=== PATIENT | female | born 1925 | race Caucasian/White ===

== ENCOUNTER 2016-07-23 15:23 | Emergency (ER) | payer OTHER ==
[2016-07-23] MEDS ORDERED: XYLOCAINE 1%/EPI 1:100,000 INJ ONE (15:41)
--- NOTE | 2016-07-23 16:01 | PROVIDER DOCUMENTATION ---
HPI-Head Injury - General Source: patient, family - History of Present Illness-Head Injury Head Injury Location: reports: frontal Other injuries associated with incident:: reports: head, LUE Quality of Pain: reports: aching Severity: reports: mild Onset/Duration: reports: just prior to arrival Timing: reports: still present Method of Injury: reports: fell Any recent trauma/injury?: reports: minor Loss of Consciousness: no loss of consciousness Locality of Occurance: Home Similar Symptoms Previously?: No Recently seen or treated by another doctor?: No <Emy Freeman - Last Filed: 07/23/16 17:14> <Marcelo Burnette - Last Filed: 07/23/16 17:20> - General Chief Complaint: Head Injury Stated Complaint: HEAD INJURY Time Seen by Provider: 07/23/16 15:45 Allergies/Adverse Reactions: Patient Allergies Allergy/AdvReac Type Severity Reaction Status Date / Time No Known Allergies Allergy Verified 09/27/15 13:25 Home Medications: Home Medication List Medication Instructions Recorded Confirmed Last Taken Type Metformin [Glucophage] 500 mg PO WBREAKFAST #30 tablet 08/27/14 09/27/15 Rx Acetaminophen [Tylenol] 325 mg PO DAILY 09/27/15 09/27/15 09/27/15 History Aspirin EC 81 mg PO DAILY 09/27/15 09/27/15 09/26/15 History Calcium Carbonate/Vitamin D3 1 each PO DAILY 09/27/15 09/27/15 09/27/15 History [Calcium 600+D Softgel] Esomeprazole [Nexium] 40 mg PO DAILY 09/27/15 09/27/15 09/27/15 History LISINOpril [Prinivil] 2.5 mg PO DAILY 09/27/15 09/27/15 09/27/15 History Metoprolol Succinate [Toprol Xl] 25 mg PO DAILY 09/27/15 09/27/15 09/27/15 History Multivitamin [Multivitamins] 1 each PO DAILY 09/27/15 09/27/15 09/27/15 History Nitroglycerin Sl [Nitroglycerin] 0.4 tab SL PRN PRN 09/27/15 09/27/15 Unknown History Potassium Gluconate 2 meq PO DAILY 09/27/15 09/27/15 09/27/15 History SIMVAstatin [Zocor] 40 mg PO QHS 09/27/15 09/27/15 09/26/15 History Sennosides/Docusate Sodium [Senna 1 tab DAILY 09/27/15 09/27/15 09/26/15 History Laxative Tablet] Hydrocodone/APAP 5 mg/325 mg 1 each PO Q4H PRN PRN #15 tablet 10/01/15 Unknown Rx [[place]-5] - History of Present Illness-Head Injury Nature of Presenting Problem: PT IS A 89 YOF THAT IS NOT ONLY ANY BLOOD THINNERS EXCEPT FOR A DAILY BABY ASPIRIN THAT PRESENTS TO ER WITH CC OF FRONTAL SCALP HEAD INJURY SECONDARY TO A SLIP AND FALL AT HOME. PT DENIES LOC. PT HAS LARGE SCALP LAC MIDLINE OF HEAD. PT ALSO HAS LARGE HEMATOMA TO LEFT HAND. PT REPORTS LEFT SHOULDER PAIN. (Emy Freeman) Review of Systems - Adult - REVIEW OF SYSTEMS - ADULT Constitutional: denies: chills, fever, fatique Eyes: reports: no symptoms reported Ears, Nose, Mouth & Throat: denies: ear pain, sinus problem, throat pain Cardiovascular: reports: no symptoms reported Respiratory: denies: cough, shortness of breath, wheezing Gastrointestinal: reports: no symptoms reported Genitourinary: reports: no symptoms reported Musculoskeletal: reports: see HPI. denies: bone pain, back pain, joint pain, joint swelling, muscle aches Integumentary: reports: see HPI. denies: hives, hair loss, mole changes, nail changes Neurological: denies: dizziness/vertigo, loss of balance, numbness, paresthesia Psychiatric: reports: no symptoms reported Endocrine: reports: no symptoms reported Hematologic/Lymphatic: reports: no symptoms reported Allergic/Immunologic: reports: no symptoms reported All Other Systems: Reviewed and Negative <Emy Freeman - Last Filed: 07/23/16 17:14> Past History - Adult - PAST MEDICAL HISTORY-ADULT Review of Records: reports: Nursing Assessment Review Major Childhood Illnesses: reports: denies history Cardiovascular: reports: HTN Endocrine/Immune: reports: Diabetes - PRIOR SURGERIES/PROCEDURES Surgical/Procedure History: reports: hysterectomy, other (hemmorhoidectomy) - PRIOR HOSPITALIZATIONS Prior Hospitalizations: reports: for other non-related - IMMUNIZATION STATUS Childhood Immunizations: See Nurse Assessment Flu Vaccine: See Nurse Assessment - SOCIAL HISTORY Smoking: denies Substance Use: none/never <FreemanEmy - Last Filed: 07/23/16 17:14> Physical Exam- Neurological - Physical Exam-Neuro Initial Vital Signs Reviewed: Yes General Appearance: appears well, alert, no apparent distress Eye Exam: bilateral eye: normal inspection, PERRL, EOMI HENMT: moist mucous membranes, normal ENT inspection, TMs normal, pharynx normal Head Injury: active bleeding (FRONTAL SCALP), lacerations (10 CM TO FRONTAL SCALP CURVED SHAPE; 3CM LEFT POSTERIOR HAND LAC), other (HEMATOMA RIGHT SCALP) Neck: non-tender, full range of motion, supple, normal inspection Respiratory: chest non-tender, lungs clear, normal breath sounds, no pleuratic chest pain, no respiratory distress, no accessory muscle use Cardiovascular: normal peripheral pulses, regular rate, rhythm, no edema, no gallop, no JVD, no murmur Abdominal Exam: normal bowel sounds, non tender, soft, no organomegaly, no pulsatile mass Peripheral Pulses: dorsalis-pedis (R): 2+, dorsalis-pedis (L): 2+ Extremity: normal range of motion, non-tender, 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 hearing, normal speech, PERRL Coordination/Gait: normal finger to nose, normal gait Motor/Sensory: no motor deficit, no sensory deficit, no pronator drift Neurologic: laborer airport maintenance II-XII nml as tested, grossly normal, no motor/sensory deficits Integumentary: normal color, normal turgor, warm/dry Psych/Mental Status: normal mood/affect, normal thought content, normal thought process, oriented x 3 - Glascow Coma Scale Best Eye Response: (4) open spontaneously Best Verbal Response: (5) oriented Best Motor Response: (6) obeys commands Total Glascow Score: 15 <Emy Freeman - Last Filed: 07/23/16 17:14> Progress - XRAY 1 XRAY: Right XRAY Study: Shoulder Impression: Normal XRAY Interpretation: NO FX - CT/MRI 1 CT Study: Head Impression: Abnormal (scalp hematoma but no intracranial injury), See EMR Report <Emy Freeman - Last Filed: 07/23/16 17:14> - REASSESSMENT Reassessment #1 Time Reassessed: 17:20 Status: improving (with the simona, sutures and dermabond there was some bleeding from the staple sites still, so a pressure bandaged was applied to remain in place about 24-36 hours) <Marcelo Burnette - Last Filed: 07/23/16 17:20> - PLAN OF CARE/RESULTS Progress/Plan/Lab Results: Orders Category Date Time Status Mis. NRSG Communication Order DIRECTED Care 07/23/16 15:42 Active Lidocaine 1%/Epi 1:100,000 [Xylocaine 1%/Epi 1:100,000] Med 07/23/16 15:41 Discontinued 10 ml INJ NOW ONE Vital Signs - 24 hr 07/23/16 15:30 Temperature 98 F Pulse Rate 79 Respiratory 18 Rate Blood Pressure 168/99 O2 Sat by Pulse 95 Oximetry Orders Category Date Time Status Mis. NRSG Communication Order DIRECTED Care 07/23/16 15:42 Active HEAD W/O CONTRAST [CT] Stat Exams 07/23/16 16:23 Taken SHOULDER-LEFT [RAD] Stat Exams 07/23/16 16:22 Taken Cyanoacrylate Tissue Adhesive [Dermabond] Med 07/23/16 16:58 Discontinued 1 each .ROUTE .STK-MED ONE Lidocaine 1%/Epi 1:100,000 [Xylocaine 1%/Epi 1:100,000] Med 07/23/16 15:41 Discontinued 10 ml INJ NOW ONE Pt began to bleed again after her head CT MD will use dermabond on top of sutures and simona to help with closure. Orders Category Date Time Status Mis. NRSG Communication Order DIRECTED Care 07/23/16 15:42 Active HEAD W/O CONTRAST [CT] Stat Exams 07/23/16 16:23 Taken SHOULDER-LEFT [RAD] Stat Exams 07/23/16 16:22 Taken Cyanoacrylate Tissue Adhesive [Dermabond] Med 07/23/16 16:58 Discontinued 1 each .ROUTE .STK-MED ONE Cyanoacrylate Tissue Adhesive [Dermabond] Med 07/23/16 17:04 Once 1 each TOP NOW ONE Lidocaine 1%/Epi 1:100,000 [Xylocaine 1%/Epi 1:100,000] Med 07/23/16 15:41 Discontinued 10 ml INJ NOW ONE (Emy Freeman) Procedures - LACERATION/WOUND REPAIR/FB Anterior Head Wound Location: Other: FRONTAL/SCALP Wound Length: 10CM Wound's Depth, Shape: irregular Wound Explored/Foreign Body: clean Irrigated with Saline?: Yes Prepped with: Kit Utilized Anesthetic: 1%, Lidocaine w/ Epinephrine Volume of Anesthetic (ml's): 8 Wound Repaired with: [place]-Small (17 SIMONA USED) Suture Size/Type: 4.0, Non-Absorbable, Nylon Number of Sutures: 3 Layer Closure?: No Sterile Dressing Applied?: Yes Splint Applied?: No Sling Applied?: No Procedure Comment: USED 4.O NYLON ALSO TO CLOSE LACERATION USING FIGURE 8 STYLE (3SUTURES) Left Posterior Hand Wound Location: Other: LEFT POSTERIOR HAND Wound Length: 3CM Wound's Depth, Shape: superficial Wound Explored/Foreign Body: clean Irrigated with Saline?: Yes Prepped with: Kit Utilized Wound Repaired with: Steri-strips Sterile Dressing Applied?: Yes Splint Applied?: No Sling Applied?: No Post Procedure Neurovascular Exam: Intact <Emy Freeman - Last Filed: 07/23/16 17:14> Departure - Departure Time of Disposition Order: 16:04 Certified Medical Emergency: Emergent <Emy Freeman - Last Filed: 07/23/16 17:14> <Marcelo Burnette - Last Filed: 07/23/16 17:20> - Departure DIAGNOSIS: Head injury Qualifiers: Encounter type: initial encounter Qualified Code(s): S09.90XA - Unspecified injury of head, initial encounter Laceration of head Qualifiers: Encounter type: initial encounter Location of open wound of head: unspecified part of head Foreign body presence: without foreign body Qualified Code(s): S01.91XA - Laceration without foreign body of unspecified part of head, initial encounter Shoulder pain Qualifiers: Laterality: left Chronicity: acute Qualified Code(s): M25.512 - Pain in left shoulder Disposition: HOME 01 Condition: Stable Additional Instructions: FOLLOW UP WITH PCP OR RETURN TO ER IN 10-14 DAYS FOR SUTURE/STAPLE REMOVAL. ED Follow Up Instructions: You have been treated by a care provider in the Emergency Department. These instructions are being provided to you so you can have an understanding of how to care for yourself upon discharge. Upon discharge from the Emergency Department, you are responsible for making arrangements for follow-up care by a physician of your choice. Take all prescribed medications as directed. Return to the Emergency Department immediately for any new or worsening symptoms. You may call the Physician Referral phone number at [phone] to obtain a list of Physicians who are taking new patients. Referrals: Foster Saleem MD [Primary Care Provider] - Attestation - Scribe Verification/Attestation Scribe:: Emy Freeman Acting as Scribe for:: Marcelo Burnette Scribe documention review:: This chart was documented by a scribe and accurately reflects the service the provider performed and the decisions made by the provider. <Emy Freeman - Last Filed: 07/23/16 17:14> Physician Attestation
[2016-07-23] MEDS ORDERED: DERMABOND ONE (16:58)
[2016-07-23] MEDS ORDERED: DERMABOND TOP ONE (17:04)
--- NOTE | 2016-07-23 17:31 | Diag Imaging Result Document ---
PROCEDURE NAME: HEAD W/O CONTRAST - 07/23/2016 CT BRAIN WITHOUT CONTRAST. DOSE REDUCTION PROTOCOL. COMPARISON: 01/05/2013. FINDINGS: There is a prominent frontal scalp hematoma. Skin simona are present. No skull fracture. No parenchymal hemorrhage. No epidural or subdural hematoma. No subarachnoid hemorrhage. No mass identified on this noncontrasted exam. No hydrocephalus. Mild microvascular ischemic changes. IMPRESSION: Scalp hematoma but no intracranial injury. A preliminary report was given at 4:51 p.m..
[2016-07-23 17:39] VITALS: BP 176/79
--- NOTE | 2016-07-23 18:16 | Diag Imaging Result Document ---
PROCEDURE NAME: SHOULDER-LEFT - 07/23/2016 LEFT SHOULDER, 3 VIEWS, INCLUDING AN AXILLARY Y VIEW: There are arthritic changes at the acromioclavicular joint. No separation. No fracture. No dislocation. IMPRESSION: No acute bony injury.
== END 2016-07-23 17:40 | disposition home or self-care (01) ==
LOC: P.ED 15:23
DX: S01.01XA Laceration without foreign body of scalp, initial encounter (principal); S61.412A Laceration without foreign body of left hand, initial encounter; M25.512 Pain in left shoulder; S60.222A Contusion of left hand, initial encounter; S00.03XA Contusion of scalp, initial encounter; I10 Essential (primary) hypertension; E11.9 Type 2 diabetes mellitus without complications; Z79.82 Long term (current) use of aspirin; Z79.899 Other long term (current) drug therapy; W01.0XXA Fall on same level from slipping, tripping and stumbling without subsequent striking against object, initial encounter
CPT/HCPCS: 70450

== ENCOUNTER 2016-08-21 13:45 | Inpatient (IN) ==
[2016-08-21 14:09] LABS: MANUAL DIFF NEEDED? NO
[2016-08-21 14:10] LABS: BASO% 0.2 % (0.0-0.8); EOS# 0.13 X1000 (0.0-0.7); EOS% 1.3 % (0.0-10.0); HEMOGLOBIN 11.8 g/dL (12.0-16.0); IMM GRAN# 0.01 X1000 (0.0-0.04); IMM GRAN% 0.1 % (0.0-0.5); LYMPH# 1.63 X1000 (1.2-3.4); LYMPH% 16.3 % (20.5-51.1); MCH 28.6 PG (27-31); MCHC 31.9 g/dL (33-37); MCV 89.8 FL (81-99); MONO# 0.97 X1000 (0.11-0.59); MONO% 9.7 % (1.7-9.3); NEUT% 72.4 % (42.2-75.2); PLT 267 X1000 (130-400); RBC 4.12 XMIL (4.2-5.4)
[2016-08-21 14:30] LABS: ALBUMIN 3.6 g/dL (3.5-5.0); CALCIUM 8.7 mg/dL (8.8-10.2); TOTAL BILIRUBIN 0.3 mg/dL (0.20-1.00); TOTAL PROTEIN 6.6 g/dL (6.3-8.3)
[2016-08-21] MEDS ORDERED: ROCEPHIN 1 GM/NS 1 GM/50 ML IVPB IV ONE (15:24)
[2016-08-21] MEDS ORDERED: NS 500 ML IV ONE (15:25)
--- NOTE | 2016-08-21 15:25 | Diag Imaging Result Document ---
PROCEDURE NAME: CHEST-2 VIEWS - 08/21/2016 CHEST, 2 VIEWS: INDICATION: Cough. COMPARISON: 09/27/2015. FINDINGS: There is stable cardiomegaly and evidence of previous granulomatous infection. There is a mild new right perihilar infiltrate consistent with atelectasis or pneumonia. Followup is recommended to document complete clearing. There is a stable moderate hiatal hernia. Stable basilar fibrosis. There is linear subsegmental atelectasis, left mid lung zone. There is a kyphosis. No definite effusions. IMPRESSION: New right perihilar infiltrate suspicious for pneumonia. Recommend followup to document complete clearing.
[2016-08-21 15:28] LABS: BILIRUBIN URINE NEGATIVE (NEGATIVE); BLOOD URINE 1+ (NEGATIVE); CLARITY CLEAR (CLEAR); COLOR YELLOW; GLUCOSE URINE NEGATIVE (NEGATIVE); LEUKOCYTES URINE 1+ (NEGATIVE); NITRITE URINE NEGATIVE (NEGATIVE); PROTEIN URINE TRACE mg/dL (NEGATIVE); URINE SOURCE CATH; UROBILINOGEN URINE NORMAL
[2016-08-21] MEDS ORDERED: ZOFRAN IV PRN (15:28)
[2016-08-21 15:30] LABS: URINE CAST GRANULAR PRESENT /LPF; URINE CULTURE PL NEEDED? YES; URINE EPITHELIAL CELLS <10 /HPF (<10); URINE RBC <10 /HPF (<10); URINE SMALL ROUND CELLS RENAL PRESENT; URINE WBC <10 /HPF (<10)
--- NOTE | 2016-08-21 15:33 | PROVIDER DOCUMENTATION ---
This chart was entered by Yesi Ray Scribe, acting as scribe for Mykel Chappell Jr, MD. HPI-General Adult - General Chief Complaint: Fever Stated Complaint: CHEST PAIN Time Seen by Provider: 08/21/16 13:58 Source: patient Allergies/Adverse Reactions: Patient Allergies Allergy/AdvReac Type Severity Reaction Status Date / Time No Known Allergies Allergy Verified 09/27/15 13:25 Home Medications: Home Medication List Medication Instructions Recorded Confirmed Last Taken Type Metformin [Glucophage] 500 mg PO WBREAKFAST #30 tablet 08/27/14 09/27/15 Rx Acetaminophen [Tylenol] 325 mg PO DAILY 09/27/15 09/27/15 09/27/15 History Aspirin EC 81 mg PO DAILY 09/27/15 09/27/15 09/26/15 History Calcium Carbonate/Vitamin D3 1 each PO DAILY 09/27/15 09/27/15 09/27/15 History [Calcium 600+D Softgel] Esomeprazole [Nexium] 40 mg PO DAILY 09/27/15 09/27/15 09/27/15 History LISINOpril [Prinivil] 2.5 mg PO DAILY 09/27/15 09/27/15 09/27/15 History Metoprolol Succinate [Toprol Xl] 25 mg PO DAILY 09/27/15 09/27/15 09/27/15 History Multivitamin [Multivitamins] 1 each PO DAILY 09/27/15 09/27/15 09/27/15 History Nitroglycerin Sl [Nitroglycerin] 0.4 tab SL PRN PRN 09/27/15 09/27/15 Unknown History Potassium Gluconate 2 meq PO DAILY 09/27/15 09/27/15 09/27/15 History SIMVAstatin [Zocor] 40 mg PO QHS 09/27/15 09/27/15 09/26/15 History Sennosides/Docusate Sodium [Senna 1 tab DAILY 09/27/15 09/27/15 09/26/15 History Laxative Tablet] Hydrocodone/APAP 5 mg/325 mg 1 each PO Q4H PRN PRN #15 tablet 10/01/15 Unknown Rx [[place]-5] - History of Present Illness -Gen Adult Nature of Presenting Problems: Pt is 89 y/o F presents to the ED with F and cough. Pt states F started yesterday. Pt states the F was 102 and she took some meds and the F came down. Pt states the F came back today. Pt states saw FURNACE SETTER at PCP's office. Location of Pain/Injury: reports: none Pain Radiation: reports: no radiation Quality of Pain: reports: none Onset/Duration: reports: 24 hours ago Timing: reports: still present Context/Activities at Onset: reports: light activity Modifying Factors: improves with: nothing Associated Symptoms: reports: cough, fever/chills (F) Similar Symptoms Previously?: Yes Recently seen or treated by another doctor?: Yes Review of Systems - Adult - REVIEW OF SYSTEMS - ADULT Constitutional: reports: fever. denies: chills Eyes: reports: no symptoms reported Ears, Nose, Mouth & Throat: reports: no symptoms reported Cardiovascular: reports: irregular heart rate (tachy). denies: chest pain, heart murmur Respiratory: reports: cough. denies: shortness of breath, wheezing Gastrointestinal: reports: no symptoms reported Genitourinary: reports: no symptoms reported Musculoskeletal: reports: no symptoms reported Integumentary: reports: no symptoms reported Neurological: reports: no symptoms reported Psychiatric: reports: no symptoms reported Endocrine: reports: no symptoms reported Hematologic/Lymphatic: reports: no symptoms reported Allergic/Immunologic: reports: no symptoms reported All Other Systems: Reviewed and Negative Past History - Adult - PAST MEDICAL HISTORY-ADULT Review of Records: reports: Nursing Assessment Review, Medications Reviewed, Social history reviewed & non-contributory. Major Childhood Illnesses: reports: denies history Cardiovascular: reports: HTN, hyperlipidemia Respiratory: reports: denies history Gastrointestinal: reports: denies history Obstetrical/Gynecological: reports: denies history Genitourinary: reports: denies history Musculoskeletal: reports: denies history Neurological: reports: denies history Endocrine/Immune: reports: Diabetes Other Conditions: reports: denies history - PRIOR SURGERIES/PROCEDURES Surgical/Procedure History: reports: hysterectomy, other (hemmorhoidectomy) - PRIOR HOSPITALIZATIONS Prior Hospitalizations: reports: for other non-related - IMMUNIZATION STATUS Childhood Immunizations: See Nurse Assessment Flu Vaccine: See Nurse Assessment - FAMILY HISTORY Family History: reviewed, not pertinent - SOCIAL HISTORY Smoking: denies Substance Use: denies Living Situation: family Physical Exam-General - PHYSICAL EXAM-ADULT Initial Vital Signs Reviewed: Yes - CONSTITUTIONAL General Appearance: appears well, alert, no apparent distress - EYES Eyes: PERRL/EOMI, pink conjunctivae - HEAD, EARS, NOSE, MOUTH & THROAT HENMT: normocephalic/atraumatic, moist mucous membranes, normal ENT inspection, TMs normal, pharynx normal, other (upper and lower dentures present) - NECK Neck: non-tender, full range of motion, supple, normal inspection - RESPIRATORY Respiratory: chest non-tender, lungs clear, normal breath sounds, no pleuratic chest pain, no respiratory distress, no accessory muscle use - CARDIOVASCULAR Cardiovascular: normal peripheral pulses, no edema, no gallop, no JVD, no murmur , tachycardia - GASTROINTESTINAL (ABDOMEN) Abdominal Exam: normal bowel sounds, non tender, soft, no organomegaly, no pulsatile mass - LYMPHATIC Lymphatic: no adenopathy - MUSCULOSKELETAL Back Exam: normal inspection, no CVA tenderness, no vertebral tenderness Extremity: normal range of motion, non-tender, normal gait, normal inspection, no pedal edema, no calf tenderness, normal capillary refill, pelvis stable - SKIN Integumentary: normal color, normal turgor, warm/dry - NEUROLOGIC Neurologic: grossly normal - PSYCHIATRIC Psych/Mental Status: normal mood/affect, oriented x 3 Progress - PLAN OF CARE/RESULTS Progress/Plan/Lab Results: Vital Signs - 8 hr 08/21/16 13:48 08/21/16 14:05 Temperature 101.4 F H Pulse Rate 128 H 107 H Respiratory Rate 20 16 Blood Pressure 104/61 101/68 O2 Sat by Pulse Oximetry 96 95 Laboratory Results - last 24 hr 08/21/16 13:55 WBC 10.01 RBC 4.12 L Hgb 11.8 L Hct 37.0 MCV 89.8 MCH 28.6 MCHC 31.9 L RDW Std Deviation 14.2 Plt Count 267 MPV 10.0 Immature Gran % (Auto) 0.1 Neut % (Auto) 72.4 Lymph % (Auto) 16.3 L [place] % (Auto) 9.7 H Eos % (Auto) 1.3 Baso % (Auto) 0.2 Immature Gran # (Auto) 0.01 Neut # (Auto) 7.25 H Lymph # (Auto) 1.63 [place] # (Auto) 0.97 H Eos # (Auto) 0.13 Baso # (Auto) 0.02 Orders Category Date Time Status Li Cath Insertion ORDERED Care 08/21/16 14:07 Active Saline Loc NOW Care 08/21/16 13:47 Active CHEST-2 VIEWS [RAD] Stat Exams 08/21/16 13:47 Ordered BLOOD CULTURE [BLDCUL] Stat Lab 08/21/16 13:47 Ordered CBC WITH DIFF [HEME] Stat Lab 08/21/16 13:55 Completed COMPREHENSIVE METABOLIC PANEL [CHEM] Stat Lab 08/21/16 13:55 Received LACTATE, PLASMA [CHEM] Stat Lab 08/21/16 13:50 Ordered URINALYSIS [URINALYSIS] Stat Lab 08/21/16 13:58 Uncollected Pulse Oximetry Stat Oth 08/21/16 13:47 Active Result Diagrams: 08/21/16 13:55 08/21/16 13:55 - XRAY 1 XRAY: Bilateral XRAY Study: Chest Impression: Abnormal (prior granulomatous dz) XRAY Interpretation: small new R perihilar infiltrate no change cm, HH, pulm fibrosis, - CONSULTS/PCP/HOSPITALIST Notification #1 *Consult/PCP/Hospitalist*: Dr. Saleem Time Discussed: 15:19 (Dr. Saleem accepted admit ) Reason/Comments: Dr. Chappell consulted with Dr. Saleem about admit of PT Consult Disposition: Admit Departure - Departure Time of Disposition Decision: 15:28 DIAGNOSIS: Pneumonia Qualifiers: Pneumonia type: due to unspecified organism Laterality: right Lung location: middle lobe of lung Qualified Code(s): J18.1 - Lobar pneumonia, unspecified organism Disposition: ADMITTED INPATIENT 09 Certified Medical Emergency: Emergent Condition: Good Referrals and Follow-Ups: Foster Saleem MD [Primary Care Provider] - This chart was documented by the indicated scribe, (Yesi Ray Scribe) and accurately reflects the services I performed and decisions made by me, Mykel Chappell Jr, MD, as attested by the provider's signature.
[2016-08-21] MEDS: PERICOLACE PO SCH (20:30)
[2016-08-21] MEDS: ZOCOR PO SCH (20:30)
[2016-08-21] MEDS: TYLENOL PO PRN (22:21)
[2016-08-22] MEDS: NEXIUM PO SCH (06:08)
[2016-08-22 07:12] LABS: HEMATOCRIT 34.8 % (37.0-47.0); HEMOGLOBIN 11.3 g/dL (12.0-16.0); MCH 29.2 PG (27-31); MCHC 32.5 g/dL (33-37); MCV 89.9 FL (81-99); MPV 10.3 FL (7.4-10.4); RBC 3.87 XMIL (4.2-5.4)
[2016-08-22 07:33] LABS: AGAP 10; ALBUMIN 3.4 g/dL (3.5-5.0); ALKALINE PHOSPHATASE 83 U/L (32-104); BUN 12 mg/dL (8-22); CALCIUM 8.7 mg/dL (8.8-10.2); CHLORIDE 100 mmol/L (98-107); COSMO 274; GOT 21 U/L (10-30); GPT 13 U/L (10-36); SODIUM 137 mmol/L (136-145); TCO2 28 mmol/L (25-35); TOTAL PROTEIN 6.3 g/dL (6.3-8.3)
[2016-08-22] MEDS: THERA M PLUS PO SCH (08:32)
[2016-08-22] MEDS: PRINIVIL PO SCH (08:32)
[2016-08-22] MEDS: GLUCOPHAGE PO SCH (08:32)
[2016-08-22] MEDS: ASPIRIN EC PO SCH (08:33)
[2016-08-22] MEDS: CALTRATE 600 + D PO SCH (08:33)
[2016-08-22] MEDS: PATIENT'S OWN MED PO SCH (08:34)
[2016-08-22] MEDS: TYLENOL PO PRN ×2 (11:07→23:32)
--- NOTE | 2016-08-22 13:27 | Diag Imaging Result Document ---
PROCEDURE NAME: TRAUMA SHOULDER LEFT - 08/22/2016 RIGHT SHOULDER, 3 VIEWS: COMPARISON: 07/23/2016. FINDINGS: Stable degeneration at the acromioclavicular joint. The glenohumeral joint is superiorly subluxed with the humeral head contacting the undersurface of the acromion. This is consistent with chronic rupture of the supraspinatus tendon. IMPRESSION: See findings.
[2016-08-22] MEDS: OMNICEF PO SCH (20:38)
[2016-08-22] MEDS: PERICOLACE PO SCH (20:38)
[2016-08-22] MEDS: ZOCOR PO SCH (20:38)
[2016-08-22] MEDS ORDERED: ZANAFLEX PO PRN (20:51)
[2016-08-23] MEDS: NEXIUM PO SCH (06:11)
[2016-08-23] MEDS: THERA M PLUS PO SCH (08:27)
[2016-08-23] MEDS: OMNICEF PO SCH (08:27)
[2016-08-23] MEDS: PRINIVIL PO SCH (08:27)
[2016-08-23] MEDS: CALTRATE 600 + D PO SCH (08:27)
[2016-08-23] MEDS: GLUCOPHAGE PO SCH (08:27)
[2016-08-23] MEDS: ASPIRIN EC PO SCH (08:27)
[2016-08-23] MEDS: PATIENT'S OWN MED PO SCH (08:29)
[2016-08-23 16:21] VITALS: BP 150/66
--- NOTE | 2016-08-23 17:48 | DISCHARGE SUMMARY ---
ADMISSION DATE: 08/21/2016 DISCHARGE DATE: 08/23/2016 DISCHARGE DIAGNOSES: 1. Pneumonia improving. 2. Chest pain resolved. 3. Left shoulder pain from chronic injury with acute pain from her recent fall. 4. Recent fall with contusion of her scalp, frontal lobe which is improving. 5. Abnormal blood culture with gram-positive cocci which has grown a contaminant with Staphylococcus epidermidis. CONSULTATIONS: None. PROCEDURES: None. HOSPITAL COURSE: The patient is an 89-year-old female who has as noted on the HPI. Treated in the usual fashion. She was placed on antibiotics which she tolerated very well. She continued to improve. Her antibiotic was changed to Omnicef p.o. On discharge, she is awake, alert. She is in no distress. She is feeling better. She is ambulating in the doty without any difficulty. She is still having left shoulder pain but it is to be expected given her chronic shoulder injury. DISPOSITION: The patient will be discharged home on Omnicef. Thirty-five minutes was spent in discharge planning and instructions. Patient currently is awake alert. She is in no distress. She is eating and drinking back to her usual. Therefore she will be discharged home. Her chest pain has resolved. TIME SPENT: Thirty-five minutes was spent in discharge planning and instructions. cc: Foster Saleem MD
--- NOTE | 2016-08-25 11:32 | HISTORY AND PHYSICAL ---
CHIEF COMPLAINT: Fever and chest pain. HISTORY OF PRESENT ILLNESS: This patient is an 89-year-old female who presented to [facility] noting that she was having some chest pain. This seems to be more chest wall pain that hurts worse with movement in her left chest and left shoulder. She notes that she recently fell and she has a well healing laceration to her scalp. She notes since then her chest began hurting. She also notes that yesterday she had a fever and that is the reason she came to the emergency department as the fever continued today. ALLERGIES: No known drug allergies. MEDICATIONS: Glucophage 500 daily, Tylenol, aspirin, Nexium, Prinivil 2.5, Toprol 25, multivitamin, nitroglycerin. Zocor 40, [place] 5 p.r.n. due to her recent fall. REVIEW OF SYSTEMS: Patient notes that she started having fever yesterday. It came back today and therefore she came to the emergency department. Positive chest pain. Hurts with deep inspiration over the past 24-48 hours. Positive cough but nonproductive. Denies any current chills, denies nausea or vomiting, dysuria, frequency or urgency, denies hesitancy. Denies polyuria, polydipsia. Denies skin rashes, weight loss, or weight gain. PAST MEDICAL HISTORY: Diabetes, hypertension and hyperlipidemia. PAST SURGICAL HISTORY: Hysterectomy and hemorrhoidectomy years ago. FAMILY HISTORY: Noncontributory. SOCIAL HISTORY: Patient lives at home. She is . She has to take care of her who is on dialysis. She does not smoke or drink. PHYSICAL EXAMINATION: VITAL SIGNS: Temperature 101.4 degrees pulse 107 to 128, respiratory rate 16-20, blood pressure 104/61. GENERAL: Patient is awake, alert, oriented. She is pleasant to talk with. Speech is regular. Memory is intact.Neck: Supple. Cardiovascular: Tachycardia. Chest: Decreased breath sounds but equal bilaterally. Positive rhonchi. No appreciable crackles. Abdomen: Soft, nondistended. Extremities: Moves all extremities. Neurologic: No focal changes. She does have pain with movement of her left shoulder area but this is chronic in nature. LABORATORY DATA: WBCs 10, hemoglobin and hematocrit 11 and 37, CMP essentially normal. Chest x- ray, small right perihilar infiltrate, pulmonary fibrosis. ASSESSMENT: 1. Pneumonia. 2. Sepsis with fever and tachycardia and pneumonia. 3. Hypertension. 4. Diabetes. 5. Chronic pulmonary fibrosis. 6. Left shoulder pain. 7. Chest pain, which appears to be more musculoskeletal in nature. PLAN: We will admit patient to the hospital. IV fluids, antibiotics, oxygen breathing treatments as needed. We will continue to follow. Further orders as needed. cc: Foster Saleem MD
--- NOTE | 2016-08-25 19:43 | DISCHARGE SUMMARY ---
ADMISSION DATE: 08/21/2016 DISCHARGE DATE: 08/23/2016 DISCHARGE DIAGNOSES: 1. Sepsis resolved secondary to pneumonia. 2. Right perihilar pneumonia improved. 3. Chest wall pain secondary to recent fall. 4. Chronic left shoulder pain due to previous injury. 5. Supraventricular tachycardia resolved. 6. Diabetes. 7. Hypertension. CONSULTATIONS: None. PROCEDURE: None. BRIEF HOSPITAL COURSE: The patient was admitted to the hospital, treated in usual fashion. Placed on antibiotics, oxygen, breathing treatments. Thankfully she continued to improve. On discharge she is awake, alert. She was in no distress. She was feeling better. She was able to ambulate the doty without any difficulty. DISPOSITION: Thirty-five minutes was spent in discharge planning and instructions. Patient will follow up outpatient in the office in 1 week, sooner should symptoms worsen or return. Will continue to follow. She will stay on antibiotics as well as her other home medications during this time. cc: Foster Saleem MD
== END 2016-08-23 16:35 | disposition home or self-care (01) ==
LOC: P.ED 13:45 → P.MEDSURG 15:41
PROVIDERS: ADMIT Family Medicine; ATTEND Family Medicine